=== PATIENT | female | born 1940 | race Hispanic/Latino ===

== ENCOUNTER 2018-06-12 05:57 | Day surgery (SDC) | payer OTHER, MEDICARE ==
[~2018-06-12] VITALS: Ht 144.8 cm; Wt 77.7 kg
[2018-06-12] MEDS ORDERED: SODIUM CHLORIDE 0.9% 1000ML 1,000 ML IV ONE (05:59)
[2018-06-12 06:49] VITALS: BP 130/58
[2018-06-12] MEDS ORDERED: LACT10SO PO (07:18)
[2018-06-12] MEDS ORDERED: METF-444 PO (07:18)
[2018-06-12] MEDS ORDERED: CALCIUM (07:18)
[2018-06-12] MEDS ORDERED: ESCI20TA36 PO (07:18)
[2018-06-12] MEDS ORDERED: OMEP20CA10 PO (07:18)
[2018-06-12] MEDS ORDERED: [UNRECOGNIZED DRUG - OTHER] (07:18)
[2018-06-12] MEDS ORDERED: BIOTIN PO (07:18)
[2018-06-12] MEDS ORDERED: MAGN400C PO (07:18)
[2018-06-12] MEDS ORDERED: FISH1CAP27 PO (07:18)
[2018-06-12] MEDS ORDERED: LOSA1TAB37 PO (07:18)
[2018-06-12] MEDS ORDERED: GLUC100019 PO (07:18)
[2018-06-12] MEDS ORDERED: LEVOTHYROXINE (07:18)
[2018-06-12 09:09] VITALS: BP 93/30
[2018-06-12 09:13] VITALS: BP 99/33
[2018-06-12 09:18] VITALS: BP 115/48
[2018-06-12 09:22] VITALS: BP 106/51
== END 2018-06-12 09:39 | disposition home or self-care (01) ==
LOC: DAH 05:57 → ENDO 05:57
PROVIDERS: ATTEND Internal Medicine
DX: Z09 Encounter for follow-up examination after completed treatment for conditions other than malignant neoplasm (principal); D12.0 Benign neoplasm of cecum; D12.2 Benign neoplasm of ascending colon; D12.3 Benign neoplasm of transverse colon; K63.5 Polyp of colon; Z86.010 Personal history of colon polyps; K29.50 Unspecified chronic gastritis without bleeding; K74.60 Unspecified cirrhosis of liver; K31.89 Other diseases of stomach and duodenum; K80.20 Calculus of gallbladder without cholecystitis without obstruction; K21.9 Gastro-esophageal reflux disease without esophagitis; E11.42 Type 2 diabetes mellitus with diabetic polyneuropathy; I10 Essential (primary) hypertension; B35.1 Tinea unguium; I73.9 Peripheral vascular disease, unspecified; M85.80 Other specified disorders of bone density and structure, unspecified site; E66.9 Obesity, unspecified; Z98.890 Other specified postprocedural states; Z90.49 Acquired absence of other specified parts of digestive tract; Z82.49 Family history of ischemic heart disease and other diseases of the circulatory system; Z80.9 Family history of malignant neoplasm, unspecified; Z80.0 Family history of malignant neoplasm of digestive organs; Z79.899 Other long term (current) drug therapy; Z79.84 Long term (current) use of oral hypoglycemic drugs; Z68.32 Body mass index [BMI] 32.0-32.9, adult
CPT/HCPCS: 43239; 45380; 45385; 82948 ×2; 88305; 88312; 93005; A4606; J7030